=== PATIENT | female | born 1995 | race Caucasian/White ===

== ENCOUNTER 2018-10-01 21:34 | Emergency (ER) | payer BC ==
[~2018-10-01] VITALS: Ht 165.1 cm; Wt 52.2 kg
[~2018-10-01 21:34] MED LIST: DEPO PROVER150 MG/M1 IM
[2018-10-01 21:36] VITALS: BP 121/80
== END 2018-10-02 00:36 | disposition home or self-care (01) ==
LOC: ED 21:34
DX: L50.9 Urticaria, unspecified (principal); T37.5X5A Adverse effect of antiviral drugs, initial encounter; J02.9 Acute pharyngitis, unspecified; Y92.89 Other specified places as the place of occurrence of the external cause

== ENCOUNTER 2022-01-19 11:31 | Emergency (ER) | payer BC, OTHER ==
[~2022-01-19] VITALS: Ht 167.6 cm; Wt 55.3 kg
[2022-01-19 11:50] VITALS: BP 125/74
[2022-01-19 12:31] LABS: BASO % 0.4 % (0.0-1.0); EOS # 0.1 10*3/uL (0.0-0.4); EOS % 1.9 % (1.0-4.0); HEMATOCRIT 38.5 % (37.0-47.0); LYMPH # 1.7 10*3/uL (1.3-4.4); LYMPH % 32.8 % (27.0-41.0); MEAN CORPUSCULAR HGB 29.4 pg (27.0-31.0); MEAN CORPUSCULAR HGB CONC 32.7 g/dl (33.0-37.0); MONO # 0.5 10*3/uL (0.1-1.0); MONO % 9.6 % (3.0-9.0); NEUT # 2.9 10*3/uL (2.3-7.9); NEUT % 54.9 % (47.0-73.0); PLATELET COUNT AUTOMATED 162 10*3/uL (130-400); RED BLOOD COUNT 4.28 10*6/uL (4.10-5.10); RED CELL DISTRI WIDTH 12.6 % (0-14.5); WHITE BLOOD COUNT 5.2 10*3/uL (4.8-10.8)
[2022-01-19 12:53] LABS: ALKALINE PHOSPHATASE 59 U/L (45-117); BUN 9 mg/dl (7-24); CHLORIDE 111 mmol/L (98-107); CREATININE 0.48 mg/dL (0.55-1.02); POTASSIUM 3.7 mmol/L (3.5-5.1); SGOT/AST 14 IU/L (3-35); SGPT/ALT 12 U/L (12-78); SODIUM 141 mmol/L (136-145); TOTAL PROTEIN 6.9 gm/dL (6.4-8.2)
[2022-01-19 13:01] LABS: THYROID STIM HORMONE (HS) 0.479 uIU/ml (0.358-4.75)
[2022-01-19 13:02] LABS: BILIRUBIN Negative (Negative); BLOOD Negative (Negative); CLARITY Cloudy (Clear); COLOR Yellow (Yellow); GLUCOSE Negative (Negative); KETONE Trace (Negative); LEUKO ESTERASE Negative (Negative); NITRITE Negative (Negative); UROBILINOGEN 0.2 E.U./dl (0.0-1.0)
[2022-01-19 13:11] LABS: URINE AMPHETAMINES < 1000 (1000ng/ml); URINE BARBITURATES < 200 (200ng/ml); URINE BENZODIAZEPINES < 200 (200ng/ml); URINE CANNABINOIDS (THC) < 50 (50ng/ml); URINE COCAINE < 300 (300ng/ml); URINE METHADONE < 300 (300ng/ml); URINE OPIATES < 300 (300ng/ml)
[2022-01-19 13:15] LABS: URINE PHENCYCLIDINE < 25 (25ng/ml)
[2022-01-19 13:17] LABS: RBC 0-2 rbc/hpf (0-2); WBC 0-2 wbc/hpf (0-5)
[2022-01-19 13:18] LABS: BACTERIA 2+; EPITHELIAL CELLS TNTC; YEAST 1+
[2022-01-19] MEDS ORDERED: ZANAFLEX4 MG PO (16:38)
== END 2022-01-19 16:45 | disposition home or self-care (01) ==
LOC: ED 11:31
PROVIDERS: Nurse Practitioner Family
DX: R10.30 Lower abdominal pain, unspecified (principal); R55 Syncope and collapse

== ENCOUNTER 2022-04-14 17:22 | Emergency (ER) | payer BC, OTHER ==
[~2022-04-14 17:22] MED LIST changes: +ZANAFLEX4 MG PO
[2022-04-14 17:38] VITALS: BP 121/87
[2022-04-14] MEDS ORDERED: PROVENTIL HFA6.7 GM INH (22:00)
[2022-04-14] MEDS ORDERED: PREDNISONE20 M1 PO (22:00)
== END 2022-04-14 22:33 | disposition home or self-care (01) ==
LOC: ED 17:22
DX: B34.9 Viral infection, unspecified (principal); Z20.822 Contact with and (suspected) exposure to COVID-19

== ENCOUNTER 2022-11-25 11:42 | Emergency (ER) | payer BC, OTHER ==
[~2022-11-25] VITALS: Wt 57.2 kg
[~2022-11-25 11:42] MED LIST changes: +PREDNISONE20 M1 PO; +PROVENTIL HFA6.7 GM INH
[2022-11-25 11:50] VITALS: BP 130/80
== END 2022-11-25 12:17 | disposition home or self-care (01) ==
LOC: ED 11:42
DX: O26.891 Other specified pregnancy related conditions, first trimester (principal); M79.672 Pain in left foot; Z88.8 Allergy status to other drugs, medicaments and biological substances; Z3A.10 10 weeks gestation of pregnancy

== ENCOUNTER 2023-01-26 00:44 | Emergency (ER) | payer BC, OTHER ==
[~2023-01-26] VITALS: Ht 167.6 cm; Wt 57.2 kg
[2023-01-26 01:25] LABS: BILIRUBIN Negative (Negative); BLOOD Negative (Negative); CLARITY Clear (Clear); COLOR Yellow (Yellow); GLUCOSE Negative (Negative); KETONE 3+ (Negative); LEUKO ESTERASE Trace (Negative); NITRITE Negative (Negative); PH 5.5 (4.5-8.0); SPECIFIC GRAVITY 1.025 (1.001-1.030)
[2023-01-26 01:42] LABS: EPITHELIAL CELLS 31-40
[2023-01-26 01:43] LABS: BACTERIA 2+
[2023-01-26 03:11] VITALS: BP 130/75
== END 2023-01-26 04:57 | disposition home or self-care (01) ==
LOC: ED 00:44
PROVIDERS: Emergency Medicine
DX: R82.4 Acetonuria (principal); Z88.8 Allergy status to other drugs, medicaments and biological substances

== ENCOUNTER 2023-05-02 17:41 | Emergency (ER) | payer BC, OTHER ==
[~2023-05-02] VITALS: Ht 167.6 cm; Wt 70.3 kg
[2023-05-02 18:33] LABS: BILIRUBIN Negative (Negative); BLOOD Negative (Negative); CLARITY Clear (Clear); COLOR Yellow (Yellow); GLUCOSE Negative (Negative); KETONE Negative (Negative); LEUKO ESTERASE Negative (Negative); NITRITE Negative (Negative); PH 6.5 (4.5-8.0); SPECIFIC GRAVITY <= 1.005 (1.001-1.030); UROBILINOGEN 0.2 E.U./dl (0.0-1.0)
[2023-05-02 18:37] VITALS: BP 146/90
[2023-05-02 18:40] LABS: BACTERIA TRACE; RBC 0-2 rbc/hpf (0-2); WBC 0-2 wbc/hpf (0-5)
[2023-05-02 19:31] LABS: BASO % 0.2 % (0.0-1.0); EOS % 0.1 % (1.0-4.0); HEMATOCRIT 33.2 % (37.0-47.0); LYMPH # 1.8 10*3/uL (1.3-4.4); MEAN CELL VOLUME 95.4 fl (81.0-99.0); MEAN CORPUSCULAR HGB 31.9 pg (27.0-31.0); MEAN CORPUSCULAR HGB CONC 33.4 g/dl (33.0-37.0); MONO # 0.8 10*3/uL (0.1-1.0); MONO % 6.1 % (3.0-9.0); NEUT # 9.8 10*3/uL (2.3-7.9); NEUT % 78.7 % (47.0-73.0); PLATELET COUNT AUTOMATED 224 10*3/uL (130-400); RED BLOOD COUNT 3.48 10*6/uL (4.10-5.10); RED CELL DISTRI WIDTH 13.2 % (0-14.5); WHITE BLOOD COUNT 12.5 10*3/uL (4.8-10.8)
[2023-05-02 20:00] LABS: ALKALINE PHOSPHATASE 131 U/L (46-116); CHLORIDE 110 mmol/L (98-107)
[2023-05-02 20:03] LABS: BUN < 5 mg/dl (9-23); SGPT/ALT < 7 U/L (10-49)
== END 2023-05-02 20:17 | disposition home or self-care (01) ==
LOC: ED 17:41
PROVIDERS: Physician Assistant Medical
DX: O99.343 Other mental disorders complicating pregnancy, third trimester (principal); F41.9 Anxiety disorder, unspecified; Z3A.33 33 weeks gestation of pregnancy; Z88.8 Allergy status to other drugs, medicaments and biological substances

== ENCOUNTER 2024-07-13 17:43 | Emergency (ER) | payer OTHER ==
[~2024-07-13] VITALS: Ht 167.6 cm; Wt 79.4 kg
[2024-07-13 18:03] VITALS: BP 123/72
[2024-07-13] MEDS ORDERED: LEXAPRO20 MG PO (18:46)
[2024-07-13] MEDS ORDERED: Motrin,Rufen800 MG PO (18:50)
[2024-07-13] MEDS ORDERED: PENICILLIN-VK500 MG PO (18:50)
[2024-07-13] MEDS ORDERED: IBUPROFEN 800 MG TAB PO ONE (18:50)
[2024-07-13] MEDS ORDERED: PENICILLIN V POTASSIUM 500 MG TAB PO ONE (18:50)
== END 2024-07-13 18:57 | disposition home or self-care (01) ==
LOC: ED 17:43
DX: K02.9 Dental caries, unspecified (principal); R22.0 Localized swelling, mass and lump, head; F17.210 Nicotine dependence, cigarettes, uncomplicated; Z88.8 Allergy status to other drugs, medicaments and biological substances

== ENCOUNTER → 2025-01-13 | Outpatient (CLI) | payer OTHER ==
[~2025-01-13] MED LIST changes: +LEXAPRO20 MG PO; +Motrin,Rufen800 MG PO; +PENICILLIN-VK500 MG PO
[2025-01-13 10:45] LABS: BASO % 0.3 % (0.0-1.0); EOS # 0.1 10*3/uL (0.0-0.4); HEMATOCRIT 38.5 % (37.0-47.0); MEAN CELL VOLUME 88.1 fl (81.0-99.0); MEAN CORPUSCULAR HGB 28.1 pg (27.0-31.0); MEAN CORPUSCULAR HGB CONC 31.9 g/dl (33.0-37.0); MEAN PLATELET VOLUME 11.5 fl (9.6-12.3); MONO # 0.5 10*3/uL (0.1-1.0); MONO % 7.9 % (3.0-9.0); NEUT # 3.4 10*3/uL (2.3-7.9); NEUT % 57.8 % (47.0-73.0); PLATELET COUNT AUTOMATED 257 10*3/uL (130-400); RED BLOOD COUNT 4.37 10*6/uL (4.10-5.10); RED CELL DISTRI WIDTH 13.2 % (0-14.5)
[2025-01-13 10:51] LABS: ALKALINE PHOSPHATASE 105 U/L (46-116); BUN 10 mg/dl (9-23); CHLORIDE 105 mmol/L (98-107); CHOLESTEROL 230 mg/dL (<200); LDL CHOLESTEROL 132 mg/dL (9-159); POTASSIUM 3.8 mmol/L (3.4-5.1); SGPT/ALT 11 U/L (5-49); TRIGLYCERIDES 261 mg/dl (<150)
[2025-01-14 03:06] LABS: MEASLES (RUBEOLA) Abs, IgG 71.9 AU/mL (Immune >16.4); MUMPS ANTIBODIES, IGG 20.3 AU/mL (Immune >10.9); VARICELLA ZOSTER (VZV) IgG Reactive (Non Reactive)
== END | disposition home or self-care (01) ==
LOC: LAB 09:36
PROVIDERS: ATTEND Family Medicine
DX: Z00.00 Encounter for general adult medical examination without abnormal findings (principal); E55.9 Vitamin D deficiency, unspecified; Z79.899 Other long term (current) drug therapy